=== PATIENT | female | born 1955 | race Caucasian/White ===

== ENCOUNTER 2024-06-28 11:48 | Emergency (ER) | payer MEDICARE, OTHER, SELFPAY ==
[2024-06-28 11:56] VITALS: BP 190/110
[2024-06-28 12:15] VITALS: BMI 29.5
[2024-06-28 12:20] VITALS: BP 153/77
[2024-06-28 13:00] VITALS: BP 148/81
--- NOTE | 2024-06-28 13:26 | ED.GENMED ---
History of Present Illness
General
Chief Complaint: Dizziness
Source: patient
Time Seen by Provider: 06/28/24 13:06
History of Present Illness
History of Present Illness:
68-year-old female with no significant past medical history presenting to the emergency department for evaluation of a constant lightheadedness with intermittent vertigo sensation that started yesterday upon attempting to get up and out of bed, the
lightheadedness persisted throughout the day and today was a little bit more vertiginous prompting visit to the ER for further evaluation. Patient notes about a month ago she had a mild upper respiratory infection and then about 2 weeks ago had
fullness sensation in her left ear. She treated the left ear fullness with some Debrox which seem to help slightly but still has some of the fullness sensation. Patient does admit to a very slight frontal headache presently but otherwise no other
symptoms including fevers, chills, rigors, visual disturbances, focal weakness or numbness, chest pain, shortness of breath, palpitations. Denies any history of similar. Family history was negative for stroke or any neurologic events. Social
history was noted for about 5 cigarettes/day.
Past History
Past History
ED Past Medical History: None
ED Past Surgical History: Cholecystectomy, Orthopedic and Other (Umbilical hernia repair)
Social History
Tobacco: Smoker (On Chantix)
Alcohol: None
Drug: None
Personal:
Living: with family
Employment: Employed
Family History
Family History: Other (Noncontributory)
Review of Systems
Review of Systems
All Other Systems: ROS reviewed and negative except as documented in HPI and ROS
Phy Exam
Physical Exam
Physical Exam:
GENERAL: Alert , in no apparent distress
Vital signs noted for significant hypertension on arrival. Improved at time of my exam although still slightly hypertensive. Tachycardia remains
EYE: pupils equal and reactive, 4 mm bilateral, EOMI, no nystagmus but symptoms are elicited when turning her head rightward
NECK: Supple
ENT: o/p clr, mmm.
CARDIAC: Tachycardic rate and rhythm, no murmur
LUNGS: Clear breath sounds bilaterally, no acute respiratory distress, no wheezes/rales/rhonchi
NEUROLOGICAL: Alert and oriented, no focal neuro deficits, no dysmetria, no ataxia, moves all extremities x 4, no sensory deficits
SKIN: Warm and dry, skin intact.
MUSCULOSKELETAL: No edema, well perfused.
PSYCH: Normal and appropriate interaction.
Scores
Heart Failure Risk
Heart Failure Risk Score: Not Applicable
Heart Score for Chest Pain Patients
STEMI patient?: Not applicable
Withdrawal Assessment of Alcohol
Withdrawal Assessment Completed?: Not applicable
Course
Orders/Labs/Results
Orders:
Orders
06/28/24 12:09
Electrocardiogram (*1) Urgent
Reason for Study: Vertigo / Dizzy
EKG- Treatment ONCE
06/28/24 13:24
Meclizine [Antivert] 25 mg PO NOW STA
PT Consult [Pt Eval And Treat] Urgent
Treatment: vertigo
Activity Level: Ambulate
06/28/24 13:25
CT Head W/o Iv Contrast Urgent
Comment:
Reason For Exam: vertigo/lightheaded
0.9% Sodium Chloride 1000 ml [Nss] 1,000 ml IV BOLUS
06/28/24 13:28
Basic Metabolic Panel Urgent
Complete Blood Count/With Diff Urgent
Magnesium Urgent
TSH Urgent
Troponin I Urgent
Abnormal Lab Results
06/28/24
13:28
MPV 10.5 H fL
(7.4-10.4)
Abs Immat Gran (auto) 0.1 H 10^3/uL
(0-0.05)
Absolute Lymphs (auto) 3.6 H 10^3/uL
(1.2-3.4)
Immature Gran % 0.6 H %
(0-0.5)
Creatinine 0.5 L mg/dL
(0.6-1.0)
Glucose 326 H mg/dl
(70-99)
06/28/24 13:28
06/28/24 13:28
Vital Signs
Initial and Last Documented VS:
Initial Vital Signs
Temp Pulse Resp BP Pulse Ox
99.0 F 120 16 190/110 98
06/28/24 11:56 06/28/24 11:56 06/28/24 11:56 06/28/24 11:56 06/28/24 11:56
Last Documented Vital Signs
Temp Pulse Resp BP Pulse Ox
99.0 F 112 16 190/93 94
06/28/24 11:56 06/28/24 13:00 06/28/24 14:00 06/28/24 15:39 06/28/24 13:00
MDM/Problems Addressed
Differential Diagnosis Includes:
Labyrinthitis given recent URI and left ear fullness sensation, PPD, patient does have some risk factors for posterior circulation stroke with smoking history as well as current blood pressure, hypertensive urgency/emergency
MDM/Problems Addressed:
68-year-old female presenting to the emergency department for evaluation of vertiginous symptoms/lightheadedness that began yesterday, persisted until today and also has a very mild frontal headache. No focal neurologic deficits on exam. Given
recent upper respiratory symptoms I suspect labyrinthitis to be the most likely diagnosis however patient does have risk factors for CVA including smoking as well as possible undiagnosed hypertension. Will obtain labs, CT imaging. Will attempt to
treat tachycardia with some fluids. Lightheadedness/dizziness to be treated with Antivert. TSH added given the unexplained tachycardia. Reassessment following
*Radiology
Radiology exam reviewed: radiology read reviewed
*Pulse Oximetry
Patient hypoxic: no
*EKG
Interpreted by ED Provider?: Yes
Comparison EKG: no changes
Heart Rate: 126
Rate: tachycardiac
Rhythm: sinus
[place]: left axis deviation
QRS Pattern: left vent hypertrophy
Ischemia: no ischemia
*[employer] Interpretation
Rate: tachycardiac
Rhythm: sinus
*Critical Care Note
Total Time (30-74mins, 75-104mins- exclusive of procedures): Not Applicable
Patient Management
Escalation/DeEscalation of care consider admission/obs:
Patient seen by physical therapy. Notes that patient had positive nystagmus during amtilda-hallpike and felt significant relief following treatment. CT imaging unremarkable. Labs revealed significant hyperglycemia signifying patient has underlying DM.
Offered to start patient with low dose metformin but she declines and would like to just follow up with PCP. She was given a script for outpatient vestibular therapy as well as for antivert. Patient also notified of elevated BP's and will have this
monitored. Aware of return precautions to the ED. Stable for d/c home
ED Attending Note
-
Portions of this chart may have been created with voice recognition software.� Occasional wrong word or��sound alike� substitutions may have occurred due to the inherent limitations of voice recognition software.
Discharge Plan
Departure
Patient Disposition: Home (Routine Discharge)
Date of Disposition: 06/28/24
Time of Disposition: 15:29
Patient with high blood pressure during this ER visit?: Yes
Discharge Problem:
Vertigo, Elevated blood pressure reading, Hyperglycemia
Instructions: Vertigo (a type of dizziness)
Prescriptions:
New
meclizine 25 mg tablet
25 mg PO BID PRN (Reason: dizziness) Qty: 10 0RF
No Action
varenicline 0.5 MG tablet
0.5 mg PO DAILY
sulfamethoxazole-trimethoprim 1 TABLET tablet
1 tab PO BID Qty: 14 0RF
Referrals:
Raisa Lynch MD [Family Provider] -
Interventions
Interventions:
*Risk Screen - Suicide Last Done: 06/28/24 12:16
*General Assessment Last Done: 06/28/24 12:16
*Neglect/Abuse Screening Last Done: 06/28/24 12:16
ED- Fall Risk Assessment Last Done: 06/28/24 15:39
*ED COVID-19 Vaccine History Last Done: 06/28/24 12:16
*Nursing Disposition Last Done: 06/28/24 15:39
ED- Neurological Assessment Last Done: 06/28/24 12:16
ED- Cardiac Assessment Last Done: 06/28/24 12:18
ED Swallowing Screen Last Done: 06/28/24 12:17
Discharge Date and Time
Discharge Date/Time: 06/28/24 15:39
Print Language: ARGENT[place]
[2024-06-28] MEDS: NSS 1000 IV (13:36)
[2024-06-28] MEDS: ANTIVERT 25 MG PO (13:36)
[2024-06-28 13:43] LABS: % Basophils 1.3 % (0-2); % Eosinophils 2.2 % (0-6); % Immature Granulocytes 0.6 % (0-0.5); % Lymphocytes 33.2 % (20.5-51.1); % Neutrophils 57.7 % (42.2-75.2); Absolute Basophils 0.1 10^3/uL (0-0.2); Absolute Eosinophils 0.2 10^3/uL (0-0.7); Absolute Immature Granulocytes 0.1 10^3/uL (0-0.05); Absolute Lymphocytes 3.6 10^3/uL (1.2-3.4); Absolute Monocytes 0.5 10^3/uL (0.1-0.6); Absolute Neutrophils 6.3 10^3/uL (1.4-6.5); Hematocrit 41.7 % (37.0-47.0); Hemoglobin 14.4 g/dL (12.0-16.0); Mean Corp Hgb Conc. 34.5 g/dL (33.0-37.0); Mean Corpuscular Hgb 29.1 pg (27.0-31.0); Mean Corpuscular Volume 84.4 fL (81.0-99.0); Mean Platelet Volume 10.5 fL (7.4-10.4); Nucleated Red Blood Cells % 0 %; Platelet Count 247 10^3/uL (130-400); Red Blood Cell Count 4.94 10^6/uL (4.20-5.40); Red Cell Dist. Width 12.9 % (11.5-14.5); White Blood Cell Count 10.8 10^3/uL (4.8-10.8)
[2024-06-28 13:54] LABS: Blood Urea Nitrogen 15 mg/dl (7-17); Calcium 9.8 mg/dl (8.4-10.2); Carbon Dioxide 25 mmol/L (22-30); Chloride 99 mmol/L (98-107); Estimated Creatinine Clearance 89 ml/min; Glucose 326 mg/dl (70-99); Magnesium 1.7 mg/dl (1.6-2.3); Potassium 4.1 mmol/L (3.5-5.1); Sodium 137 mmol/L (135-145); eGFR > 60.00
[2024-06-28 14:05] LABS: Troponin I 0.018 ng/ml
[2024-06-28 14:25] LABS: TSH 1.24 uIU/ml (0.47-4.68)
[2024-06-28 15:39] VITALS: BP 190/93
[2024-06-28 15:48] VITALS: BP 148/60; PULSE 100
== END 2024-06-28 15:39 | disposition home or self-care (01) ==
LOC: EMR 11:48
PROVIDERS: Physician Assistant Medical; EMERGENCY PHYSICIAN Student in an Organized Health Care Education/Training Program; FAMILY PHYSICIAN Family Medicine
DX: R73.9 Hyperglycemia, unspecified (principal); R42 Dizziness and giddiness; R03.0 Elevated blood-pressure reading, without diagnosis of hypertension; F17.210 Nicotine dependence, cigarettes, uncomplicated
CPT/HCPCS: 99285; 96360; 70450; 80048; 83735; 84443; 84484; 85025; 93005